=== PATIENT | male | born 1990 | race Caucasian/White ===

== ENCOUNTER 2016-09-28 02:52 | Emergency (ER) | payer BC, OTHER ==
[2016-09-28] MEDS ORDERED: DIPH/PERTUSS(ACELL)/TETANUS VAC/PF 0.5 ML SYR (>=10YO) IM ONE (03:16)
[2016-09-28] MEDS ORDERED: LIDOCAINE 1% INJ-PF (10 MG/ML) 30 ML SDV INJ ONE (03:16)
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
== END 2016-09-28 04:45 | disposition home or self-care (01) ==
LOC: ER 02:52
PROC: 0CQ0XZZ Repair Upper Lip, External Approach (ICD-10-PCS; principal; 2016-09-28)
DX: S01.511A Laceration without foreign body of lip, initial encounter (principal); Y04.2XXA Assault by strike against or bumped into by another person, initial encounter
CPT/HCPCS: 70450; 72125; 90471; 90715; 99284

== ENCOUNTER 2017-03-31 16:10 | Emergency (ER) | payer BC ==
--- NOTE | 2017-03-31 16:15 | ER Document Report ---
ED Psych Disorder / Suicide - General Information source: Patient TRAVEL OUTSIDE OF THE [place] IN LAST 30 DAYS: No <BHAVNA ALEXANDER - Last Filed: 03/31/17 18:41> <MATT CARBAJAL - Last Filed: 04/01/17 00:01> - General Stated Complaint: PSYCH EVALUATION Time Seen by Provider: 03/31/17 16:12 Notes: Patient is a 26 year old male that presents to the emergency department today with complaints of being off of his psychatric medications for one week (xanax, ambien, adderall, and klonopin) according to the EMS run sheet. Patient was supposed to go to group therapy today but he did not go. Patient admitted to EMS that he drinks at least 6 beers a day and he drank today prior to arrival. Entire history is from EMS secondary to the patient being uncooperative with exam. Patient denies pain, questions, or seeing a counselor. (BHAVNA ALEXANDER) - Related Data Allergies/Adverse Reactions: No Known Allergies Allergy (Unverified 06/15/16 18:04) Past Medical History - General Information source: [facility] Records Cannot obtain history due to: Uncooperative - Social History Smoking Status: Current Every Day Smoker Cigarette use (# per day): Yes Frequency of alcohol use: Heavy Drug Abuse: Marijuana, Prescription drugs Lives with: Family Family History: Reviewed & Not Pertinent - Medical History Medical History: Negative Psychiatric Medical History: Reports: Hx Anxiety, Hx Attention Deficit Hyperactivity Disorder, Hx Depression Surgical Hx: Negative - Immunizations Immunizations up to date: No Hx Diphtheria, Pertussis, Tetanus Vaccination: Yes <BHAVNA ALEXANDER - Last Filed: 03/31/17 18:41> Review of Systems - Review of Systems -: Yes ROS unobtainable due to patient's medical condition - uncooperative <BHAVNA ALEXANDER - Last Filed: 03/31/17 18:41> Physical Exam <BHAVNA ALEXANDER - Last Filed: 03/31/17 18:41> <MATT CARBAJAL - Last Filed: 04/01/17 00:01> - Vital signs Vitals: Temp Pulse Resp BP Pulse Ox 98.5 F 87 18 124/69 95 03/31/17 16:17 03/31/17 16:17 03/31/17 16:17 03/31/17 16:17 03/31/17 16:17 - Notes Notes: Physical Exam: General: Alert, appears well. HEENT: Normocephalic. Atraumatic. PERRL. Extraocular movements intact. Oropharynx clear. Neck: Supple. Non-tender. Respiratory: No respiratory distress. Clear and equal breath sounds bilaterally. Cardiovascular: Regular rate and rhythm. Abdominal: Normal Inspection. Non-tender. No distension. Normal Bowel Sounds. Back: Non-tender. No deformity or step off. Extremities: Moves all four extremities. Upper extremities: see skin exam Lower extremities: Normal inspection. No edema. Normal ROM. Neurological: Normal cognition. AAOx4. Normal speech. Psychological: Uncooperative. Skin: Abrasions to right knuckle with bandage. No erythema. (BHAVNA ALEXANDER) Course - Laboratory Result Diagrams: 03/31/17 16:51 03/31/17 16:51 <BHAVNA ALEXANDER - Last Filed: 03/31/17 18:41> - Laboratory Result Diagrams: 03/31/17 16:51 03/31/17 16:51 <MTAT CARBAJAL - Last Filed: 04/01/17 00:01> - Re-evaluation Re-evalutation: 03/31 Patient presents after having outbursts at home. Patient is suicidal. He is medically stable. He is not stable from a psychiatric standpoint for discharge. Patient has informed the mental health provider that he would shoot himself with a gun if he needed to. He has been argumentative with his mother in the room. Patient likely will need transfer to an inpatient facility. Mother does not want him to go to [place]. Patient has been started on medications including Cogentin, Effexor, and Zyprexa. He will be reevaluated by mental health in the morning. (MATT CARBAJAL) - Vital Signs Vital signs: Temp Pulse Resp BP Pulse Ox 98.5 F 87 18 124/69 95 03/31/17 16:17 03/31/17 16:17 03/31/17 16:17 03/31/17 16:17 03/31/17 16:17 - Laboratory Laboratory results interpreted by ak: 03/31/17 03/31/17 16:51 16:51 Eosinophils % 6.1 H Glucose 64 L Direct Bilirubin 0.5 H Salicylates < 1.0 L Acetaminophen < 10 L Discharge <BHAVNA ALEXANDER - Last Filed: 03/31/17 18:41> <MATT CARBAJAL - Last Filed: 04/01/17 00:01> - Discharge Clinical Impression: Suicidal ideation Condition: Stable Disposition: PSYCH HOSP/UNIT Scribe Attestation: 04/01/17 00:01 I personally performed the services described in the documentation, reviewed and edited the documentation which was dictated to the scribe in my presence, and it accurately records my words and actions. (MATT CARBAJAL) Scribe Documentation - Scribe Written by Santa:: Santa Cowan, 03/31/2017 1840 acting as scribe for :: Andra <BHAVNA ALEXANDER - Last Filed: 03/31/17 18:41>
[2017-03-31 17:53] LABS: APPEARANCE,URINE CLEAR; BILIRUBIN,URINE NEGATIVE (NEGATIVE); GLUCOSE, URINE NEGATIVE (NEGATIVE); KETONES,URINE NEGATIVE (NEGATIVE); LEUKOCYTE ESTERASE,URINE NEGATIVE (NEGATIVE); NITRITE,URINE NEGATIVE (NEGATIVE); PROTEIN,URINE NEGATIVE (NEGATIVE); URINE SPECIFIC GRAVITY 1.005; UROBILINOGEN,URINE NEGATIVE mg/dL (<2.0)
[2017-03-31 18:02] LABS: ABSOLUTE BASOPHILS # (AUTO) 0.1 10^3/uL (0.0-0.2); ABSOLUTE EOSINOPHILS # (AUTO) 0.5 10^3/uL (0.0-0.6); ABSOLUTE LYMPHOCYTES (AUTO) 1.5 10^3/uL (0.5-4.7); ABSOLUTE MONOCYTES (AUTO) 0.8 10^3/uL (0.1-1.4); ABSOLUTE NEUT (AUTO) 5.7 10^3/uL (1.7-8.2); EOSINOPHILS % (AUTO) 6.1 % (0-6); HEMATOCRIT 49.2 % (37.9-51.0); HEMOGLOBIN 16.6 g/dL (13.5-17.0); HGB HCT DIFFERENCE 0.6; LYMPHOCYTES % (AUTO) 17.7 % (13-45); MEAN CORPUSCULAR HEMOGLOBIN 30.1 pg (27.0-33.4); MEAN CORPUSCULAR HGB CONC 33.7 g/dL (32.0-36.0); MEAN CORPUSCULAR VOLUME 89 fl (80-97); MONOCYTES % (AUTO) 9.4 % (3-13); RED BLOOD COUNT 5.51 10^6/uL (4.35-5.55); RED CELL DISTRIBUTION WIDTH 13.2 % (11.5-14.0); SEGMENTED NEUTROPHILS % (AUTO) 65.8 % (42-78); WHITE BLOOD COUNT 8.6 10^3/uL (4.0-10.5)
[2017-03-31 18:06] LABS: ALANINE AMINOTRANSFERASE 49 U/L (21-72); ALBUMIN 4.5 g/dL (3.5-5.0); ALCOHOL 48 mg/dL (NONE DETECTED); ALKALINE PHOSPHATASE 53 U/L (38-126); ANION GAP 12 (5-19); ASPARTATE AMINO TRANSFERASE 35 U/L (17-59); BILIRUBIN,DIRECT 0.5 mg/dL (0.0-0.4); BILIRUBIN,TOTAL 0.6 mg/dL (0.2-1.3); BLOOD UREA NITROGEN 13 mg/dL (7-20); CALCIUM 9.4 mg/dL (8.4-10.2); CARBON DIOXIDE 26 mmol/L (22-30); CHLORIDE 105 mmol/L (98-107); CREATININE RESULT 0.88 mg/dL (0.52-1.25); GLUCOSE 64 mg/dL (75-110); POTASSIUM 4.6 mmol/L (3.6-5.0); SODIUM 142.8 mmol/L (137-145); TOTAL PROTEIN 7.4 g/dL (6.3-8.2)
[2017-03-31 18:13] LABS: URINE BARBITURATES SCREEN NEGATIVE; URINE METHADONE SCREEN NEGATIVE; URINE OPIATES LOW NEGATIVE; URINE PHENCYCLIDINE SCREEN NEGATIVE
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
[2017-03-31] MEDS ORDERED: VENLAFAXINE HCL 37.5 MG CAP.SR.24H PO SCH (19:45)
--- NOTE | 2017-03-31 19:53 | EKG REPORT ---
SEVERITY:- NORMAL ECG - SINUS RHYTHM : Confirmed by: Gray Samuel 31-Mar-2017 19:52:59
[2017-03-31] MEDS: OLANZAPINE 5 MG TABLET PO SCH (21:20)
[2017-03-31] MEDS ORDERED: BENZTROPINE MESYLATE 1 MG TABLET PO SCH (22:00)
--- NOTE | 2017-04-01 09:33 | PSYCHOLOGICAL NOTE ---
Psych Note - Psych Note Psych Note: 26-year-old male here for suicidal ideation. Patient denies any complaints at this time. Patient is awaiting placement. Patient is pleasant and conversant in the room. He was cooperative.
[2017-04-01] MEDS: OLANZAPINE 5 MG TABLET PO SCH (10:22)
[2017-04-01 16:34] VITALS: BP 132/90
[2017-04-01] MEDS ORDERED: VENLAFAXINE HCL 37.5 MG CAP.SR.24H PO SCH (22:00)
== END 2017-04-01 16:36 | disposition home or self-care (01) ==
LOC: ER 16:10
DX: R45.851 Suicidal ideations (principal); F10.10 Alcohol abuse, uncomplicated; F32.9 Major depressive disorder, single episode, unspecified; Z56.0 Unemployment, unspecified; F17.210 Nicotine dependence, cigarettes, uncomplicated
CPT/HCPCS: 93005; 99284; 36415; 80307 ×4; 85025; 80053; 81001; 93010; J3490

== ENCOUNTER 2019-05-20 00:51 | Emergency (ER) | payer BC ==
[2019-05-20] MEDS ORDERED: LIDOCAINE 1%/EPINEPHRINE INJ 20 ML VIAL INJ ONE (00:59)
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
[2019-05-20 09:24] VITALS: BP 132/86
== END 2019-05-20 09:24 | disposition home or self-care (01) ==
LOC: ER 00:51
DX: S01.81XA Laceration without foreign body of other part of head, initial encounter (principal); S01.01XA Laceration without foreign body of scalp, initial encounter; W01.190A Fall on same level from slipping, tripping and stumbling with subsequent striking against furniture, initial encounter; Y92.009 Unspecified place in unspecified non-institutional (private) residence as the place of occurrence of the external cause; Z72.89 Other problems related to lifestyle
CPT/HCPCS: 99282; 70450; 72125; 12013; J3490

== ENCOUNTER 2019-05-20 15:14 | Emergency (ER) | payer BC ==
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
[2019-05-20 16:12] LABS: ABSOLUTE BASOPHILS # (AUTO) 0.1 10^3/uL (0.0-0.2); ABSOLUTE EOSINOPHILS # (AUTO) 0.6 10^3/uL (0.0-0.6); ABSOLUTE LYMPHOCYTES (AUTO) 1.7 10^3/uL (0.5-4.7); ABSOLUTE MONOCYTES (AUTO) 1.2 10^3/uL (0.1-1.4); ABSOLUTE NEUT (AUTO) 6.6 10^3/uL (1.7-8.2); BASOPHILS % (AUTO) 1.2 % (0-2); EOSINOPHILS % (AUTO) 5.9 % (0-6); HEMATOCRIT 49.9 % (37.9-51.0); LYMPHOCYTES % (AUTO) 16.9 % (13-45); MEAN CORPUSCULAR VOLUME 88 fl (80-97); MONOCYTES % (AUTO) 11.5 % (3-13); PLATELET COUNT 254 10^3/uL (150-450); RED BLOOD COUNT 5.67 10^6/uL (4.35-5.55); RED CELL DISTRIBUTION WIDTH 13.8 % (11.5-14.0); SEGMENTED NEUTROPHILS % (AUTO) 64.5 % (42-78); TOTAL CELLS COUNTED % (AUTO) 100 %; WHITE BLOOD COUNT 10.2 10^3/uL (4.0-10.5)
[2019-05-20 16:26] LABS: ALBUMIN 4.5 g/dL (3.5-5.0); ALKALINE PHOSPHATASE 74 U/L (38-126); ANION GAP 9 (5-19); ASPARTATE AMINO TRANSFERASE 63 U/L (17-59); BILIRUBIN,DIRECT 0.2 mg/dL (0.0-0.4); BILIRUBIN,TOTAL 0.8 mg/dL (0.2-1.3); BLOOD UREA NITROGEN 7 mg/dL (7-20); CARBON DIOXIDE 26 mmol/L (22-30); CHLORIDE 103 mmol/L (98-107); GLUCOSE 95 mg/dL (75-110); POTASSIUM 4.3 mmol/L (3.6-5.0); TOTAL PROTEIN 7.2 g/dL (6.3-8.2)
[2019-05-20 16:30] LABS: APPEARANCE,URINE CLEAR; BILIRUBIN,URINE NEGATIVE (NEGATIVE); COLOR,URINE YELLOW; GLUCOSE, URINE 150 mg/dL (NEGATIVE); KETONES,URINE NEGATIVE (NEGATIVE); LEUKOCYTE ESTERASE,URINE NEGATIVE (NEGATIVE); NITRITE,URINE NEGATIVE (NEGATIVE); PROTEIN,URINE NEGATIVE (NEGATIVE); URINE SPECIFIC GRAVITY 1.011; UROBILINOGEN,URINE NEGATIVE mg/dL (<2.0)
[2019-05-20 16:30] LABS: ACETAMINOPHEN < 10 ug/mL (10-30); ALCOHOL < 10 mg/dL (NONE DETECTED); SALICYLATE < 1.0 mg/dL (2.0-20.0)
[2019-05-20 16:45] LABS: URINE AMPHETAMINES SCREEN UNCONFIRMED POSITIVE; URINE BARBITURATES SCREEN NEGATIVE; URINE BENZODIAZEPINES SCREEN NEGATIVE; URINE COCAINE SCREEN NEGATIVE; URINE MARIJUANA (THC) SCREEN UNCONFIRMED POSITIVE; URINE METHADONE SCREEN NEGATIVE; URINE PHENCYCLIDINE SCREEN NEGATIVE
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
--- NOTE | 2019-05-21 14:36 | ER Document Report ---
Doctor's Note Notes: 05/21/19 14:34 Rounds: Chart reviewed and patient interviewed. Patient being evaluated for major depressive disorder. Lab studies were all essentially normal and unremarkable except for his drug screen which is positive for marijuana and amphetamines. Patient says he is on Adderall. Vital signs were normal except for his blood pressure this morning was 99 systolic so I am having that repeated. Patient is not bleeding anywhere. Has an abrasion of his left forehead. Patient appears to be medically stable for transfer or discharge. César Gutierrez MD
[2019-05-21 14:37] VITALS: BP 123/79
--- NOTE | 2019-05-22 19:07 | EKG REPORT ---
SEVERITY:- NORMAL ECG - SINUS RHYTHM : Confirmed by: Gray Samuel 22-May-2019 19:06:58
== END 2019-05-21 15:02 ==
LOC: ER 15:14
DX: F91.1 Conduct disorder, childhood-onset type (principal); F29 Unspecified psychosis not due to a substance or known physiological condition; F41.9 Anxiety disorder, unspecified; F19.90 Other psychoactive substance use, unspecified, uncomplicated; F17.200 Nicotine dependence, unspecified, uncomplicated; Z72.89 Other problems related to lifestyle
CPT/HCPCS: 36415; 80053; 80307; 81001; 85025; 93005; 93010; 99285